=== PATIENT | female | born 1995 | race American Indian/Alaskan Native ===

== ENCOUNTER 2016-09-26 18:22 | Emergency (ER) | payer BC ==
[2016-09-26 19:02] VITALS: BP 152/79; PULSE 76; RESP 16; TEMP 99.1; O2SAT 100
[2016-09-26 20:01] LABS: BASO # 0.1 K/uL (0.0-0.2); BASO % 0.9 % (0.0-2.0); EOS # 0.2 K/uL (0.0-0.7); EOS % 2.8 % (0.0-4.0); HEMOGLOBIN 12.4 g/dL (12.0-16.0); LYMPH # 1.7 K/uL (1.0-4.3); LYMPH % 20.6 % (20.0-40.0); MEAN CELL VOLUME 75.9 fl (81.0-99.0); MEAN CORPUSCULAR HGB CONC 32.9 g/dL (33.0-37.0); MEAN PLATELET VOLUME 9.2 fl (7.2-11.7); MONO # 1.1 K/uL (0.0-0.8); MONO % 13.2 % (0.0-10.0); NEUT # 5.1 K/uL (1.8-7.0); NEUT % 62.5 % (50.0-75.0); RBC 4.97 Mil/uL (3.80-5.20); RED CELL DISTRIBUTION WIDTH 15.2 % (11.5-14.5); WHITE BLOOD COUNT 8.2 K/uL (4.8-10.8)
--- NOTE | 2016-09-26 20:03 | ED PDOC ---
HPI: Abdomen Time Seen by Provider: 09/26/16 19:30 Chief Complaint (Nursing): GI Problem Chief Complaint (Provider): Changes in stool pattern History Per: Patient History/Exam Limitations: no limitations Onset/Duration Of Symptoms: Days Outside of [place] travel?: No Current Symptoms Are (Timing): Still Present Additional Complaint(s): The patient is a 20yo female, presents to the ED for evaluation of oddly formed and colored stool since September 14. The patient states she has not had normal bowel movements and states the movements haven't been loose but not as well formed as normally. Patient additionally states few days ago she went on a "cleanse" to try and get her stools to be more consistent and states it did not work. Of note, patient mentions before her symptom started, she recently had her wisdom teeth removed and was on 2 different courses of antibiotics recently. Patient denies any abdominal pain, fever, chills, weight loss. Patient offers no additional medical complaints. Past Medical History Reviewed: Historical Data, Nursing Documentation, Vital Signs Vital Signs: Last Vital Signs Temp 99.1 F 09/26/16 18:58 Pulse 76 09/26/16 18:58 Resp 16 09/26/16 18:58 BP 152/79 H 09/26/16 18:58 Pulse Ox 100 09/26/16 20:05 - Medical History PMH: No Chronic Diseases - Surgical History Surgical History: No Surg Hx - Family History Family History: States: Unknown Family Hx - Home Medications Home Medications: Ambulatory Orders Medication Instructions Recorded metroNIDAZOLE [Flagyl] 500 mg PO BID 7 Days 09/26/16 - Allergies Allergies/Adverse Reactions: Allergies Allergy/AdvReac Type Severity Reaction Status Date / Time No Known Allergies Allergy Verified 09/26/16 18:58 Review of Systems ROS Statement: Except As Marked, All Systems Reviewed And Found Negative Constitutional: Negative for: Fever, Chills, Weight loss Gastrointestinal: Positive for: Other (differently formed stool). Negative for : Abdominal Pain Physical Exam - Reviewed Nursing Documentation Reviewed: Yes Vital Signs Reviewed: Yes - Physical Exam Appears: Positive for: Well, Non-toxic, No Acute Distress Head Exam: Positive for: ATRAUMATIC, NORMAL INSPECTION, NORMOCEPHALIC Skin: Positive for: Normal Color Eye Exam: Positive for: Normal appearance Neck: Positive for: Normal, Supple Cardiovascular/Chest: Positive for: Regular Rate, Rhythm Respiratory: Positive for: Normal Breath Sounds. Negative for: Respiratory Distress Gastrointestinal/Abdominal: Positive for: Normal Exam, Soft. Negative for: Tenderness Back: Positive for: Normal Inspection Extremity: Negative for: Deformity, Swelling Neurologic/Psych: Positive for: Alert, Oriented - Laboratory Results Result Diagrams: 09/26/16 19:56 09/26/16 19:56 - ECG O2 Sat by Pulse Oximetry: 100 (RA) Pulse Ox Interpretation: Normal Medical Decision Making Medical Decision Making: Time: 1944 Impression: Change in stool pattern, possibly secondary to antibiotics use Plan: -- Labs -- Urinalysis Reassess 2100: Pt. remains well, will refer to GI. Told to take ABx. Return precautions discussed. Scribe Attestation: Documented by Alisa Chavez acting as a scribe for Edu Mccracken MD. Provider Attestation: All medical record entries made by the Scribe were at my direction and personally dictated by me. I have reviewed the chart and agree that the record accurately reflects my personal performance of the history, physical exam, medical decision making, and the department course for this patient. I have also personally directed, reviewed, and agree with the discharge instructions and disposition. Disposition - Clinical Impression Clinical Impression: Diarrhea - Disposition Referrals: Amol Garcia MD [Staff Provider] - Disposition Time: 21:00 Condition: STABLE Prescriptions: metroNIDAZOLE [Flagyl] 500 mg PO BID 7 Days Instructions: Acute Diarrhea (ED), Colitis (ED)
[2016-09-26 20:10] LABS: ALB/GLOB RATIO 1.3 (1.0-2.1); ALBUMIN 4.4 g/dL (3.5-5.0); ALT/SGPT 32 U/L (9-52); AST/SGOT 26 U/L (14-36); BLOOD UREA NITROGEN 14 mg/dl (7-17); CALCIUM 9.5 mg/dL (8.4-10.2); GFR AFRICAN-AMERICAN > 60; GFR NON-AFRICAN AMERICAN > 60; LIPASE 80 U/L (23-300)
[2016-09-26 21:10] LABS: SQUAMOUS EPITHIAL 1 /hpf (0-5); URINE BACTERIA OCC (<OCC); URINE BILIRUBIN NEGATIVE (NEGATIVE); URINE BLOOD MODERATE (NEGATIVE); URINE CLARITY CLEAR (Clear); URINE COLOR STRAW (YELLOW); URINE GLUCOSE (UA) NEG (Normal); URINE LEUKOCYTE ESTERASE NEG Leu/uL (Negative); URINE NITRATE NEGATIVE (NEGATIVE); URINE PROTEIN NEGATIVE (NEGATIVE); URINE UROBILINOGEN 0.2-1.0 mg/dL (0.2-1.0)
== END 2016-09-26 21:13 | disposition home or self-care (01) ==
LOC: H.ER 18:22
DX: K52.9 Noninfective gastroenteritis and colitis, unspecified (principal); R19.7 Diarrhea, unspecified